=== PATIENT | female | born 1960 | race Caucasian/White ===

== ENCOUNTER → 2016-10-10 | Outpatient (CLI) | payer MEDICARE, OTHER ==
--- NOTE | 2016-10-11 07:49 | US ---
EXAMINATION TYPE: US thyroid st tissue head/neck DATE OF EXAM: 10/10/2016 3:32 PM COMPARISON: 07/23/2015 CLINICAL HISTORY: F/U GLAND SIZE: Right Lobe: 4.9 x 2.1 x 2.2 cm Overall Parenchyma: heterogenous Left Lobe: 4.2 x 1.2 x 1.3 cm Overall Parenchyma: homogeneous Isthmus Thickness: 0.2 cm NODULES RIGHT: # of nodules measured on right: 2 1. 3.2 X 1.7 x 2.3 cm isoechoic solid nodule at the mid pole with well-defined margins; This nodule is wider than tall and shows intranodular vascularity. Prior size: 3.5 x 2.0 x 2.1 cm 2. 0.6 X 0.4 x 0.4 cm isoechoic solid nodule at the upper pole with well-defined margins; This nodul e is wider than tall and shows intranodular vascularity. Prior size: Not visualized on prior LEFT: # of nodules measured on left: 2 1. 0.7 X 0.4 x 0.7 cm isoechoic solid nodule at the mid pole with poorly defined margins; This nodu le is wider than tall and shows intranodular vascularity. Prior size: 0.7 x 0.4 x 0.6 cm 2. 0.5 X 0.4 x 0.5 cm hypoechoic mixed nodule at the mid pole with well-defined margins; This nodul e is wider than tall and shows intranodular vascularity. Prior size: Not visualized on prior ISTHMUS: # of nodules measured: 0 IMPRESSION: Bilateral neck scanned, no abnormal lymphadenopathy noted. Stable previous nodules with a couple new subcentimeter nodules
== END | disposition home or self-care (01) ==
LOC: RADUSWWP 14:14
PROVIDERS: ATTEND Internal Medicine Endocrinology, Diabetes & Metabolism
DX: E04.2 Nontoxic multinodular goiter (principal)
CPT/HCPCS: 76536; 84439; 84443

== ENCOUNTER → 2017-11-30 | Outpatient (CLI) | payer MEDICARE, OTHER ==
--- NOTE | 2017-11-30 08:05 | CT ---
EXAMINATION TYPE: CT sinus wo con DATE OF EXAM: 11/30/2017 COMPARISON: Report dated 11/15/2002 HISTORY: Chronic sinusitis CT DLP: 624.2 mGycm CONTRAST: 0 mL of Omnipaque 350 The paranasal sinuses are examined in the axial plane at 2 mm thick sections. Reconstructed images i n the coronal plane were obtained. There is mild dental amalgam scatter artifact Mucosal thickening is within the left maxillary sinus. An air-fluid level may be present. Correlate f or acute left maxillary sinusitis. Right maxillary sinus is patent. Uncinectomies been performed. Th ere is mucosal thickening within a posterior right ethmoid air cell. The sphenoid sinuses are clear. The frontal sinuses are clear. The septum is evaluated. There is septal deviation to the right. Bilateral jung bullosa are presen t.. The ostiomeatal units are patent, , bilateral uncinectomies been performed. IMPRESSIONS: 1. Clinical consideration for acute left maxillary sinusitis is recommended. 2. Mild mucosal thickening left maxillary sinus in the posterior right ethmoid air cell.
== END ==
LOC: RADCTMAIN 06:47
PROVIDERS: ATTEND Otolaryngology
DX: J34.89 Other specified disorders of nose and nasal sinuses (principal)
CPT/HCPCS: 70486

== ENCOUNTER → 2019-02-28 | Outpatient (CLI) | payer MEDICARE, OTHER ==
--- NOTE | 2019-02-28 17:24 | US ---
EXAMINATION TYPE: US thyroid st tissue head/neck DATE OF EXAM: 02/28/2019 COMPARISON: 10/10/2016 CLINICAL HISTORY: E04.2 Nontoxic multinodular goiter. GLAND SIZE: Right Lobe: 4.4 x 1.8 x 1.9 cm Overall Parenchyma: homogenous Left Lobe: 4.1 x 1.4 x 1.3 cm Overall Parenchyma: homogeneous Isthmus Thickness: 0.2 cm NODULES RIGHT: # of nodules measured on right: 2 1. 0.4 X 0.3 x 0.4 cm isoechoic solid nodule at the upper pole with well-defined margins. This nod ule is wider than tall and shows intranodular vascularity. Prior size: 0.6 x 0.4 x 0.4 cm 2. 2.8 X 1.7 x 2.0 cm isoechoic mixed nodule at the mid pole with well-defined margins. This nodule is wider than tall and shows intranodular vascularity. Prior size: 3.2 x 1.7 x 2.3 cm LEFT: # of nodules measured on left: 1 1. 1.0 X 0.7 x 0.8 cm anechoic mixed nodule at the mid pole with well-defined margins. This nodule is wider than tall and shows intranodular vascularity. Prior size: 0.7 x 0.4 x 0.4 cm ISTHMUS: # of nodules measured in the isthmus: 0 Bilateral neck scanned, no evidence of lymphadenopathy. Multiple subcentimeter nodules seen bilateral ly. IMPRESSION: No interval growth of the dominant right thyroid nodule. Slight interval growth of a solitary left th yroid nodule measuring only 1 cm. Continued surveillance is recommended.
== END | disposition home or self-care (01) ==
LOC: RADUSWWP 15:36
PROVIDERS: ATTEND Internal Medicine Endocrinology, Diabetes & Metabolism
DX: E04.1 Nontoxic single thyroid nodule (principal)
CPT/HCPCS: 76536

== ENCOUNTER → 2019-04-17 | Outpatient (CLI) | payer MEDICARE, OTHER ==
[2019-04-17 10:37] LABS: Basophils % (A) 1 %; Eosinophils # (A) 0.1 k/uL (0-0.7); Eosinophils % (A) 4 %; HCT 38.2 % (34.0-46.0); Lymphocytes % (A) 32 %; MCH 29.3 pg (25.0-35.0); MCHC 31.4 g/dL (31.0-37.0); MCV 93.2 fL (80.0-100.0); Mean Platelet Volume 7.1; Monocytes # (A) 0.2 k/uL (0-1.0); Monocytes % (A) 6 %; Neutrophils # (A) 1.7 k/uL (1.3-7.7); Neutrophils % (A) 54 %; Platelet Count 204 k/uL (150-450); RDW 13.2 % (11.5-15.5); WBC 3.1 k/uL (3.8-10.6)
[2019-04-17 16:08] LABS: African American GFR (CKD) 51.6 (60.0-200.0); Albumin 4.2 g/dL (3.80-4.90); Albumin/Globulin Ratio 2.8 (1.60-3.17); Anion Gap 7.4 mmol/L (4.00-12.00); BUN/Creat Ratio 23.85 Ratio (12.00-20.00); Calcium 9.6 mg/dL (8.7-10.3); Carbon Dioxide 27.6 mmol/L (21.6-31.8); Globulin 1.5 g/dL (1.6-3.3); Potassium 4.4 mmol/L (3.5-5.5); Total Bilirubin 0.6 mg/dL (0.2-1.2); Total Protein 5.7 g/dL (6.2-8.2)
[2019-04-17 16:15] LABS: T4, Free (Free Thyroxine) 1.1 ng/dL (0.80-1.80)
== END | disposition home or self-care (01) ==
LOC: LABWHC1 09:52
PROVIDERS: ATTEND Internal Medicine Endocrinology, Diabetes & Metabolism
DX: E04.2 Nontoxic multinodular goiter (principal)
CPT/HCPCS: 36415; 80053; 84439; 84443; 85025

== ENCOUNTER → 2020-08-04 | Outpatient (CLI) | payer MEDICARE, OTHER ==
[2020-08-04 11:20] LABS: Basophils % (A) 0 %; Eosinophils # (A) 0.1 k/uL (0-0.7); Eosinophils % (A) 3 %; HCT 38.6 % (34.0-46.0); HGB 12.5 gm/dL (11.4-16.0); Lymphocytes # (A) 1.2 k/uL (1.0-4.8); Lymphocytes % (A) 37 %; MCH 30.5 pg (25.0-35.0); MCHC 32.4 g/dL (31.0-37.0); Mean Platelet Volume 7.1; Monocytes # (A) 0.3 k/uL (0-1.0); Monocytes % (A) 8 %; Neutrophils # (A) 1.6 k/uL (1.3-7.7); Neutrophils % (A) 50 %; Platelet Count 207 k/uL (150-450); RDW 12.8 % (11.5-15.5); WBC 3.2 k/uL (3.8-10.6)
[2020-08-04 11:57] LABS: Appearance,Urine Clear (Clear); Bilirubin,Urine Negative (Negative); Blood,Urine Negative (Negative); Color,Urine Colorless; Glucose,Urine (UA) Negative (Negative); Ketones,Urine Negative (Negative); Leukocyte Esterase,Urine Negative (Negative); Nitrite,Urine Negative (Negative); Protein,Urine Negative (Negative); Specific Gravity,Urine 1.004 (1.001-1.035); Urobilinogen,Urine <2.0 mg/dL (<2.0)
[2020-08-04 17:53] LABS: % Iron Saturation 29.15 (12.00-45.00); African American GFR (CKD) 46.9 (60.0-200.0); Albumin 4.2 g/dL (3.80-4.90); Anion Gap 6.9 mmol/L (4.00-12.00); BUN/Creat Ratio 15.71 Ratio (12.00-20.00); Calcium 10.1 mg/dL (8.7-10.3); Carbon Dioxide 28.1 mmol/L (21.6-31.8); Magnesium 1.7 mg/dL (1.5-2.4); Non-African American GFR(CKD) 40.5 (60.0-200.0); Phosphorus 2.8 mg/dL (2.4-5.1); Potassium 4.6 mmol/L (3.5-5.5); Uric Acid 9.1 mg/dL (2.9-7.7)
[2020-08-04 19:08] LABS: Ferritin 99.9 ng/mL (10.0-291.0)
[2020-08-04 21:51] LABS: Creatinine,Urine Random 36.2 mg/dL
[2020-08-04 22:16] LABS: Total Protein,Urine Random <4.0 mg/dL (0.0-13.5)
== END | disposition home or self-care (01) ==
LOC: LABWHC1 10:18
PROVIDERS: ATTEND Internal Medicine Nephrology
DX: E55.9 Vitamin D deficiency, unspecified (principal); N25.81 Secondary hyperparathyroidism of renal origin; N39.0 Urinary tract infection, site not specified; N18.32 Chronic kidney disease, stage 3b; M10.9 Gout, unspecified; D64.9 Anemia, unspecified; R80.9 Proteinuria, unspecified
CPT/HCPCS: 36415; 80048; 81003; 82040; 82306; 82570; 82728; 83540; 83550; 83735; 83970; 84100; 84156; 84550; 85025

== ENCOUNTER → 2020-11-19 | Outpatient (CLI) | payer MEDICARE, OTHER ==
[2020-11-19 09:13] LABS: Appearance,Urine Clear (Clear); Bilirubin,Urine Negative (Negative); Blood,Urine Negative (Negative); Color,Urine Light Yellow; Glucose,Urine (UA) Negative (Negative); Ketones,Urine Negative (Negative); Leukocyte Esterase,Urine Negative (Negative); Nitrite,Urine Negative (Negative); Protein,Urine Negative (Negative); Specific Gravity,Urine 1.008 (1.001-1.035); Urobilinogen,Urine <2.0 mg/dL (<2.0)
[2020-11-19 09:33] LABS: Creatinine,Urine Random 53.5 mg/dL; Protein/Creatinine Ratio,Urine 0.28
[2020-11-19 15:24] LABS: Basophils # (A) 0.02 X 10*3/uL (0.00-0.10); Basophils % (A) 0.5 %; Eosinophils # (A) 0 X 10*3/uL (0.04-0.35); Eosinophils % (A) 0 %; HCT 39.7 % (37.2-46.3); HGB 11.9 g/dL (12.0-15.0); Lymphocytes # (A) 0.94 X 10*3/uL (0.90-5.00); Lymphocytes % (A) 25.6 %; MCH 28.9 pg (27.0-32.0); MCV 96.4 fL (80.0-97.0); Mean Platelet Volume 10.6 fL (9.5-12.2); Monocytes % (A) 10.9 %; Neutrophils # (A) 2.31 X 10*3/uL (1.80-7.70); Platelet Count 200 X 10*3/uL (140-440); RBC 4.12 X 10*6/uL (4.10-5.20); RDW 13.2 % (11.5-14.5); WBC 3.67 X 10*3/uL (4.50-10.00)
[2020-11-19 18:08] LABS: Ferritin 103.8 ng/mL (10.0-291.0)
[2020-11-19 23:21] LABS: % Iron Saturation 31.16 (12.00-45.00); African American GFR (CKD) 42.8 (60.0-200.0); Albumin 4.2 g/dL (3.80-4.90); Anion Gap 6.3 mmol/L (4.00-12.00); BUN/Creat Ratio 16.67 Ratio (12.00-20.00); Calcium 10.9 mg/dL (8.7-10.3); Carbon Dioxide 29.7 mmol/L (21.6-31.8); Phosphorus 3.3 mg/dL (2.4-5.1); Potassium 4.8 mmol/L (3.5-5.5); Uric Acid 8.2 mg/dL (2.9-7.7)
== END | disposition home or self-care (01) ==
LOC: LABWHC1 08:17
PROVIDERS: ATTEND Nurse Practitioner Family
DX: N18.32 Chronic kidney disease, stage 3b (principal); E55.9 Vitamin D deficiency, unspecified; N25.81 Secondary hyperparathyroidism of renal origin; M10.9 Gout, unspecified; N39.0 Urinary tract infection, site not specified; D64.9 Anemia, unspecified
CPT/HCPCS: 36415; 80048; 81003; 82040; 82306; 82570; 82728; 83540; 83550; 83735; 83970; 84100; 84156; 84550; 85025

== ENCOUNTER → 2020-12-03 | Outpatient (CLI) | payer MEDICARE, OTHER ==
--- NOTE | 2020-12-03 16:25 | NM ---
EXAMINATION TYPE: NM parathyroid w/spect DATE OF EXAM: 12/03/2020 COMPARISON: NONE HISTORY: Secondary hyperparathyroidism TECHNIQUE: Following administration of 24.9 mCi Tc99m Sestamibi. Anterior projection images of the neck and ches t were obtained 25 minutes and 3 hours post injection. SPECT images of the neck and chest were obtai yovana and reconstructed in three axes. FINDINGS: Thyroid tracer washout: Delayed images demonstrate near-complete tracer washout from the thyroid., Th ere is some delayed thyroid uptake noted. Parathyroid uptake: None. The two-hour delayed images do not demonstrate any focal abnormal persisten t uptake in the region of the parathyroid glands to suggest parathyroid adenoma. Normal uptake: There is physiological tracer uptake in the thyroid and salivary glands. IMPRESSION: Delayed uptake is noted in the thyroid, no evident parathyroid adenoma
== END ==
LOC: RADNMMAIN 11:19
PROVIDERS: ATTEND Internal Medicine Nephrology
DX: N25.81 Secondary hyperparathyroidism of renal origin (principal)
CPT/HCPCS: 78071; A9500

== ENCOUNTER → 2020-12-28 | Outpatient (CLI) | payer MEDICARE, OTHER ==
[2020-12-28 23:36] LABS: African American GFR (CKD) 42.8 (60.0-200.0); Anion Gap 8.1 mmol/L (4.00-12.00); BUN/Creat Ratio 15.33 Ratio (12.00-20.00); Calcium 10.3 mg/dL (8.7-10.3); Carbon Dioxide 27.9 mmol/L (21.6-31.8); Potassium 5.1 mmol/L (3.5-5.5)
== END | disposition home or self-care (01) ==
LOC: LABWHC1 10:35
PROVIDERS: ATTEND Internal Medicine Nephrology
DX: E83.52 Hypercalcemia (principal); N18.32 Chronic kidney disease, stage 3b
CPT/HCPCS: 36415; 80048; 83970

== ENCOUNTER → 2021-01-07 | Outpatient (CLI) | payer MEDICARE, OTHER ==
[2021-01-08 09:14] LABS: Free Kappa Lt Chain Qnt, Serum 2.86 mg/dL (0.33-1.94)
== END | disposition home or self-care (01) ==
LOC: LABWHC1 10:05
PROVIDERS: ATTEND Nurse Practitioner Family
DX: E83.52 Hypercalcemia (principal)
CPT/HCPCS: 36415; 82306; 83883

== ENCOUNTER → 2021-01-22 | Outpatient (CLI) | payer MEDICARE, OTHER | END | disposition home or self-care (01) | LOC: LABWHC1 11:37 | PROVIDERS: ATTEND Family Medicine | DX: Z20.822 Contact with and (suspected) exposure to COVID-19 (principal) | CPT/HCPCS: U0003; C9803; U0005 ==

== ENCOUNTER → 2021-04-07 | Outpatient (CLI) | payer MEDICARE, OTHER ==
[2021-04-07 09:09] LABS: Appearance,Urine Clear (Clear); Bilirubin,Urine Negative (Negative); Blood,Urine Negative (Negative); Color,Urine Light Yellow; Glucose,Urine (UA) Negative (Negative); Ketones,Urine Negative (Negative); Leukocyte Esterase,Urine Trace (Negative); Mucus,Urine Rare /hpf; Nitrite,Urine Negative (Negative); PH, Urine 7.5 (5.0-8.0); Protein,Urine Negative (Negative); Specific Gravity,Urine 1.006 (1.001-1.035); Urobilinogen,Urine <2.0 mg/dL (<2.0); WBC,Urine 3 /hpf (0-5)
[2021-04-07 09:52] LABS: Creatinine,Urine Random 41.6 mg/dL; Protein/Creatinine Ratio,Urine 0.337
[2021-04-07 15:55] LABS: Basophils # (A) 0.02 X 10*3/uL (0.00-0.10); Basophils % (A) 0.6 %; Eosinophils # (A) 0 X 10*3/uL (0.04-0.35); Eosinophils % (A) 0 %; HCT 37.3 % (37.2-46.3); HGB 11.8 g/dL (12.0-15.0); Lymphocytes # (A) 1.05 X 10*3/uL (0.90-5.00); Lymphocytes % (A) 33.1 %; MCH 29.9 pg (27.0-32.0); MCHC 31.6 g/dL (32.0-37.0); MCV 94.7 fL (80.0-97.0); Mean Platelet Volume 10.8 fL (9.5-12.2); Monocytes # (A) 0.36 X 10*3/uL (0.20-1.00); Monocytes % (A) 11.4 %; Neutrophils # (A) 1.74 X 10*3/uL (1.80-7.70); Neutrophils % (A) 54.9 %; Platelet Count 204 X 10*3/uL (140-440); RBC 3.94 X 10*6/uL (4.10-5.20); RDW 12.8 % (11.5-14.5); WBC 3.17 X 10*3/uL (4.50-10.00)
[2021-04-07 23:44] LABS: % Iron Saturation 21.28 (12.00-45.00); African American GFR (CKD) 42.8 (60.0-200.0); Albumin 4.3 g/dL (3.80-4.90); Anion Gap 7.3 mmol/L (4.00-12.00); BUN/Creat Ratio 16.67 Ratio (12.00-20.00); Calcium 9.6 mg/dL (8.7-10.3); Carbon Dioxide 27.7 mmol/L (21.6-31.8); Magnesium 1.9 mg/dL (1.5-2.4); Phosphorus 3.1 mg/dL (2.4-5.1); Uric Acid 7.5 mg/dL (2.9-7.7)
[2021-04-07 23:54] LABS: Ferritin 123.9 ng/mL (10.0-291.0)
[2021-04-08 13:47] LABS: Free Kappa Lt Chain Qnt, Serum 2.97 mg/dL (0.33-1.94)
== END | disposition home or self-care (01) ==
LOC: LABWHC1 07:42
PROVIDERS: ATTEND Nurse Practitioner Family
DX: N39.0 Urinary tract infection, site not specified (principal); N18.32 Chronic kidney disease, stage 3b; N25.81 Secondary hyperparathyroidism of renal origin; E55.9 Vitamin D deficiency, unspecified; D64.9 Anemia, unspecified; M10.9 Gout, unspecified; R80.9 Proteinuria, unspecified
CPT/HCPCS: 36415; 80048; 81001; 82040; 82306; 82570; 82652; 82728; 83540; 83550; 83735; 83883; 83970; 84100; 84156; 84166; 84550; 85025

== ENCOUNTER → 2021-06-15 | Outpatient (CLI) | payer MEDICARE, OTHER | END | disposition home or self-care (01) | LOC: LABWHC1 15:40 | PROVIDERS: ATTEND Family Medicine | DX: Z11.52 Encounter for screening for COVID-19 (principal) | CPT/HCPCS: U0003; C9803; U0005 ==

== ENCOUNTER → 2021-09-10 | Outpatient (CLI) | payer MEDICARE, OTHER ==
[2021-09-10 09:13] LABS: Appearance,Urine Clear (Clear); Bilirubin,Urine Negative (Negative); Blood,Urine Negative (Negative); Color,Urine Light Yellow; Glucose,Urine (UA) Negative (Negative); Ketones,Urine Negative (Negative); Leukocyte Esterase,Urine Negative (Negative); Nitrite,Urine Negative (Negative); PH, Urine 7.5 (5.0-8.0); Protein,Urine Negative (Negative); Specific Gravity,Urine 1.009 (1.001-1.035); Urobilinogen,Urine <2.0 mg/dL (<2.0)
[2021-09-10 10:10] LABS: Creatinine,Urine Random 55.3 mg/dL; Protein/Creatinine Ratio,Urine 0.271
[2021-09-10 15:05] LABS: Basophils # (A) 0.03 X 10*3/uL (0.00-0.10); Basophils % (A) 0.9 %; Eosinophils # (A) 0 X 10*3/uL (0.04-0.35); Eosinophils % (A) 0 %; HCT 39.8 % (37.2-46.3); HGB 12.2 g/dL (12.0-15.0); Lymphocytes # (A) 1.06 X 10*3/uL (0.90-5.00); Lymphocytes % (A) 30.5 %; MCH 29.4 pg (27.0-32.0); MCHC 30.7 g/dL (32.0-37.0); MCV 95.9 fL (80.0-97.0); Mean Platelet Volume 10.1 fL (9.5-12.2); Monocytes # (A) 0.43 X 10*3/uL (0.20-1.00); Monocytes % (A) 12.4 %; Neutrophils # (A) 1.95 X 10*3/uL (1.80-7.70); Neutrophils % (A) 55.9 %; Platelet Count 214 X 10*3/uL (140-440); RBC 4.15 X 10*6/uL (4.10-5.20); RDW 13.2 % (11.5-14.5); WBC 3.48 X 10*3/uL (4.50-10.00)
[2021-09-10 17:22] LABS: % Iron Saturation 18.52 (12.00-45.00); African American GFR (CKD) 39.9 (60.0-200.0); Albumin 4.5 g/dL (3.8-4.9); Anion Gap 10.8 mmol/L (10.00-18.00); BUN/Creat Ratio 16.6 Ratio (12.00-20.00); Blood Urea Nitrogen 26.4 mg/dL (9.0-27.0); Calcium 10.7 mg/dL (8.7-10.3); Carbon Dioxide 26.8 mmol/L (20.0-27.5); Magnesium 2.2 mg/dL (1.5-2.4); Non-African American GFR(CKD) 34.4 (60.0-200.0); Phosphorus 3.3 mg/dL (2.4-5.1); Potassium 5.3 mmol/L (3.5-5.5); Uric Acid 8.1 mg/dL (2.9-7.7)
== END | disposition home or self-care (01) ==
LOC: LABWHC1 07:58
PROVIDERS: ATTEND Internal Medicine Nephrology
DX: N25.81 Secondary hyperparathyroidism of renal origin (principal); E61.1 Iron deficiency; N18.32 Chronic kidney disease, stage 3b; R80.9 Proteinuria, unspecified
CPT/HCPCS: 36415; 80048; 81003; 82040; 82570; 83540; 83550; 83735; 83970; 84100; 84156; 84550; 85025

== ENCOUNTER 2021-11-13 20:10 | Emergency (ER) | payer MEDICARE, OTHER ==
[2021-11-13] MEDS ORDERED: ACETAMINOPHEN TAB 325 MG TAB PO STA (21:17)
--- NOTE | 2021-11-13 21:48 | CT ---
EXAMINATION TYPE: CT brain cspine wo con DATE OF EXAM: 11/13/2021 COMPARISON: None HISTORY: fall CT DLP: combined DLP 1031.8 mGycm Automated exposure control for dose reduction was used. Ventricles and sulci appear normal. There is no mass effect or midline shift. There is no sign of int racranial hemorrhage. There is left occipital scalp hematoma. Calvarium is intact. The skull base is intact. There is normal aeration of the mastoid sinuses. The cervical vertebra have normal alignment. Posterior elements are intact. There is mild disc space narrowing at C5-6 and C6-7 with minimal spurring. Facet joints are intact. IMPRESSION: Minor degenerative changes in the cervical spine. No fracture. Negative CT scan of the brain. Occipital scalp hematoma.
--- NOTE | 2021-11-13 21:55 | CT ---
EXAMINATION TYPE: CT facial bones wo con DATE OF EXAM: 11/13/2021 COMPARISON: None HISTORY: fall CT DLP: combined DLP 1031.8 mGycm Automated exposure control for dose reduction was used. Images obtained from the bottom of the mandible to the top of the frontal sinuses without contrast. The mandibular ring is intact. Temporomandibular joints appear intact. Zygomatic arches appear normal . Nasal bone appears intact. The maxilla is intact There is fairly normal aeration of the paranasal sinuses. There is no evidence of orbital blowout fra cture. Orbital margins are intact. There is no retro-orbital mass. I see no significant soft tissue s welling. IMPRESSION: Negative exam. No evidence of fracture.
--- NOTE | 2021-11-13 22:00 | XR ---
EXAMINATION TYPE: XR wrist complete RT DATE OF EXAM: 11/13/2021 COMPARISON: NONE HISTORY: Pain TECHNIQUE: 4 views FINDINGS: Carpal bones are intact. There is short ulna. Radiocarpal joint is anatomic. Metacarpals ar e intact. Scaphoid is intact. IMPRESSION: No acute abnormality of the right wrist.
--- NOTE | 2021-11-13 22:01 | XR ---
EXAMINATION TYPE: XR elbow complete RT DATE OF EXAM: 11/13/2021 COMPARISON: NONE HISTORY: Pain TECHNIQUE: 3 views FINDINGS: There is no evidence of fracture nor dislocation. Elbow joint spaces are normal. There is n o sign of elbow joint effusion. IMPRESSION: Negative right elbow exam. No fracture.
--- NOTE | 2021-11-13 22:50 | ED ---
General Adult HPI - General Chief complaint: Fall Stated complaint: Fall-head injury,R wrist pain Time Seen by Provider: 11/13/21 20:25 Source: patient, RN notes reviewed Mode of arrival: wheelchair - History of Present Illness Initial comments: 61-year-old female presents to the emergency department for evaluation of injuries sustained from a slip and fall on ice approximately 50 minutes prior to arrival. Patient states she lost her balance on a slippery spot and fell on her buttocks, then struck the back of her head on the ice. Additionally, patient complains of left-sided facial discomfort that worsens with jaw movement. States she also had her right arm extended out when she fell and is worried about injury to her elbow and wrist. Patient denies loss of consciousness, vision change, neck or back pain, chest pain, difficulty breathing, abdominal pain, nausea, hip pain, and lower extremity discomfort. Does not take any blood thinning medications. - Related Data Home Medications Medication Instructions Recorded Confirmed Fluticasone Nasal Elizabeth [Flonase 2 spr EA NOSTRIL DAILY 12/26/17 01/03/18 Nasal Elizabeth] Montelukast [Singulair] 10 mg PO DAILY 12/26/17 01/03/18 Vit C/E/Zn/Coppr/Lutein/Zeaxan 1 tab PO BID 12/26/17 01/03/18 [Preservision Areds 2 Softgel] Allergies Allergy/AdvReac Type Severity Reaction Status Date / Time adhesive tape Allergy Itching Verified 11/13/21 20:15 amoxicillin [From Augmentin] Allergy Rash/Hives Verified 11/13/21 20:15 barley Allergy Unknown Verified 11/13/21 20:15 cefprozil [From Cefzil] Allergy Rash/Hives Verified 11/13/21 20:15 clarithromycin [From Biaxin] Allergy Rash/Hives Verified 11/13/21 20:15 clavulanic acid Allergy Rash/Hives Verified 11/13/21 20:15 [From Augmentin] clindamycin Allergy Rash/Hives Verified 11/13/21 20:15 codeine Allergy Nausea & Verified 11/13/21 20:15 Vomiting latex Allergy Swelling Verified 11/13/21 20:15 MOUTH, TONGUE milk Allergy Unknown Verified 11/13/21 20:15 mold Allergy Dyspnea Verified 11/13/21 20:15 morphine Allergy Hallucinations Verified 11/13/21 20:15 IN LARGE DOSES Sulfa (Sulfonamide Allergy Rash/Hives Verified 11/13/21 20:15 Antibiotics) wheat Allergy Unknown Verified 11/13/21 20:15 duratuss Allergy Unknown Uncoded 11/13/21 20:15 rye Allergy Unknown Uncoded 11/13/21 20:15 Review of Systems ROS Statement: Those systems with pertinent positive or pertinent negative responses have been documented in the HPI. ROS Other: All systems not noted in ROS Statement are negative. Past Medical History Past Medical History: Asthma, Cancer, Eye Disorder, Thyroid Disorder Additional Past Medical History / Comment(s): SEASONAL ALLERGY/ASTHMA CHILD. 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 MACULAR DEGENERATION, NEUROPATHY EYES. THYROID NODULES. NASAL FX, SINUS PROBLEM CURRENTLY. liver cyst. History of Any Multi-Drug Resistant Organisms: None Reported Past Surgical History: Hysterectomy, Orthopedic Surgery Additional Past Surgical History / Comment(s): REPAIR AAA. Kidney SURG X9. SINUS SURG. EXC CYSTS WRISTS. Past Anesthesia/Blood Transfusion Reactions: Previous Problems w/ Anesthesia, Motion Sickness, Postoperative Nausea & Vomiting (PONV) Additional Past Anesthesia/Blood Transfusion Reaction / Comment(s): SLOW TO AWAKEN FROM ANESTHESIA. Past Psychological History: No Psychological Hx Reported Smoking Status: Never smoker Past Alcohol Use History: None Reported Past Drug Use History: None Reported - Past Family History Mother Family Medical History: Cancer Father Family Medical History: Cancer, CVA/TIA, Myocardial Infarction ([place]) General Exam Limitations: no limitations (Well-developed, well-nourished female in no acute distress. Initial temperature 98.0, pulse 71, respirations 20, blood pressure 190/90 and pulse ox 98% on room air) General appearance: alert, in no apparent distress Head exam: Present: other (Occipital scalp hematoma measuring 4 cm x 7 cm noted. Skin intact with no abrasion or laceration.) Eye exam: Present: normal appearance, PERRL, EOMI. Absent: scleral icterus, conjunctival injection, periorbital swelling Pupils: Present: other (Patient was wearing glasses at time of injury and they are intact. ) ENT exam: Present: normal exam, normal oropharynx, mucous membranes moist, TM's normal bilaterally, other (Tenderness upon palpation of the left TMJ; no crepitus or malalignment) Expanded Ear exam: Present: normal external inspection. Absent: auricular hematoma, auricular trauma Mouth exam: Present: normal external inspection Teeth exam: Present: normal inspection Throat exam: normal inspection Neck exam: Present: normal inspection, full ROM. Absent: tenderness Respiratory exam: Present: normal lung sounds bilaterally. Absent: respiratory distress, wheezes, rales, rhonchi, stridor, chest wall tenderness Cardiovascular Exam: Present: regular rate, normal rhythm, normal heart sounds. Absent: systolic murmur, diastolic murmur, rubs, gallop, clicks GI/Abdominal exam: Present: soft, normal bowel sounds. Absent: distended, tenderness, guarding, rebound, rigid Extremities exam: Present: normal capillary refill. Absent: pedal edema Right Upper Arm exam: Present: normal inspection, full ROM. Absent: tenderness, swelling Elbow exam: Present: normal inspection, full ROM, tenderness (Tenderness upon palpation of the elbow diffusely- nonlocalized; ROM intact). Absent: swelling, abrasion, deformity, crepitus, dislocation Forearm Wrist exam: Present: normal inspection, tenderness (mild diffuse wrist tenderness upon palpation; nonlocalized), swelling (mild swelling dorsal surface). Absent: full ROM (somewhat decreased right wrist flexion), abrasion, laceration, ecchymosis, deformity, crepitus, dislocation, erythema, tenderness over anatomical snuff box, pain with axial thumb loading Hand Wrist exam: Present: normal inspection, full ROM. Absent: tenderness, swelling, abrasion Neuro motor exam: Present: thumb opposition intact, fingers 2-5 abduction intact Vascular: Present: normal capillary refill, radial pulse, brachial pulse, ulnar pulse. Absent: vascular compromise, Pallo Back exam: Present: normal inspection, full ROM. Absent: tenderness, paraspinal tenderness, vertebral tenderness Neurological exam: Present: alert, oriented X3, CN II-XII intact, other (smooth gait, ambulates freely) Psychiatric exam: Present: normal affect, normal mood Skin exam: Present: warm, dry, intact, normal color. Absent: rash Course Vital Signs 11/13/21 11/14/21 20:12 00:06 Temperature 98 F 98.1 F Pulse Rate 71 72 Respiratory 20 16 Rate Blood Pressure 190/99 126/82 O2 Sat by Pulse 99 98 Oximetry Medical Decision Making - Medical Decision Making This is a very pleasant 61-year-old female who presents to the emergency department independently status post slip and fall on the ice approximately 50 minutes prior to arrival. Patient has a history of renal carcinoma therefore only takes Tylenol for pain. Upon exam, patient is well-appearing and in no acute distress. She is able to answer questions appropriately and moves freely. Does have a moderate-sized occipital scalp hematoma; no area of abrasion or laceration visualized. She does not take any blood thinning medications. Patient did not experience any loss of consciousness or vision change. Additional complaints include left sided TMJ tenderness upon palpation and with mastication, though no malalignment or crepitus noted. There is no vertebral or paraspinal tenderness. She also has right wrist and elbow pain with no obvious deformity. Imaging was obtained. CTs of the head, C-spine, and facial bones were negative. X-rays of the right wrist and elbow were negative. Trevon wrap was applied to the right wrist for comfort. Suggested alternating heat and ice. Encouraged to use Tylenol as needed for pain. Mobility and gentle range of motion exercises were discussed. Instructed to follow up with PCP for recheck. Return parameters were discussed in detail. Patient verbalizes understanding and agrees with plan. This patient's care was discussed with my attending . - Radiology Data Radiology results: report reviewed, image reviewed CT of the brain and C-spine was obtained. Report was reviewed in its entirety. Impression per Dr. Watters is minor degenerative changes in the cervical spine. No fracture. Negative computed tomography scan of the brain. Occipital scalp hematoma. CT of the facial bones was obtained. Report was reviewed in its entirety. Impression per Dr. Watters is negative exam. No evidence of fracture. X-ray of the right wrist was obtained. Report was reviewed in its entirety. Impression per Dr. Watters is no acute abnormality of the right wrist. X-ray of the right elbow was obtained. Report was reviewed in its entirety. Impression per Dr. Watters is negative right elbow exam. No fracture. Disposition Clinical Impression: Hematoma of occipital region of scalp, Sprain of wrist, right, Fall from slipping on ice Disposition: HOME SELF-CARE Condition: Stable Instructions (If sedation given, give patient instructions): Wrist Injury (ED), Head Injury (ED), Fall Prevention (ED) Additional Instructions: Take Tylenol for pain. Alternate heat and ice to affected areas. Trevon wrap to right wrist x3 days. Maintain mobility with gentle range of motion exercises. Follow up with your orthopedist for a recheck of the right wrist this week. Return to the emergency department with any new, worsening, or concerning symptoms. Is patient prescribed a controlled substance at d/c from ED?: No Referrals: Sterling House MD [Primary Care Provider] - 1-2 days Time of Disposition: 23:53
[2021-11-14 00:08] VITALS: PULSE 72; RESP 16; TEMP 98.1
[2021-11-14 00:11] VITALS: BP 126/82
== END 2021-11-14 00:06 | disposition home or self-care (01) ==
LOC: EC 20:10
DX: S63.501A Unspecified sprain of right wrist, initial encounter (principal); S00.03XA Contusion of scalp, initial encounter; J45.909 Unspecified asthma, uncomplicated; Z79.899 Other long term (current) drug therapy; W00.0XXA Fall on same level due to ice and snow, initial encounter
CPT/HCPCS: 70450; 70486; 72125; 99284

== ENCOUNTER → 2021-11-18 | Outpatient (CLI) | payer MEDICARE ==
[2021-11-18 19:20] LABS: African American GFR (CKD) 39.3 (60.0-200.0); Albumin 4.5 g/dL (3.8-4.9); Albumin/Globulin Ratio 2.19 (1.60-3.17); Anion Gap 10.1 mmol/L (10.00-18.00); BUN/Creat Ratio 16.06 Ratio (12.00-20.00); Blood Urea Nitrogen 25.7 mg/dL (9.0-27.0); Calcium 10.7 mg/dL (8.7-10.3); Carbon Dioxide 26.3 mmol/L (20.0-27.5); Globulin 2.1 g/dL (1.6-3.3); Non-African American GFR(CKD) 33.9 (60.0-200.0); Potassium 5.2 mmol/L (3.5-5.5); T4, Free (Free Thyroxine) 1.17 ng/dL (0.800-1.800); Total Bilirubin 0.4 mg/dL (0.30-1.20); Total Protein 6.5 g/dL (6.2-8.2)
== END | disposition home or self-care (01) ==
LOC: LABWHC1 11:58
PROVIDERS: ATTEND Internal Medicine Endocrinology, Diabetes & Metabolism
DX: E21.0 Primary hyperparathyroidism (principal); E04.2 Nontoxic multinodular goiter
CPT/HCPCS: 36415; 80053; 82306; 83970; 84439; 84443

== ENCOUNTER → 2021-12-02 | Outpatient (CLI) | payer MEDICARE ==
--- NOTE | 2021-12-03 07:45 | US ---
EXAMINATION TYPE: US thyroid st tissue head/neck DATE OF EXAM: 12/02/2021 COMPARISON: US CLINICAL HISTORY: E21.0 HYPERPARATHYROIDISM. Stage 4 Renal CA. GLAND SIZE: Right Lobe: 5.2 x 2.2 x 2.3 cm Overall Parenchyma: homogenous Left Lobe: 4.1 x 1.3 x 1.0 cm Overall Parenchyma: homogeneous Isthmus Thickness: 0.2 cm NODULES RIGHT: # of nodules measured on right: 2 largest of multiple 1. 0.5 X 0.5 x 0.3 cm, upper pole, spongiform, hypoechoic nodule, which is wider than tall, with ir regular margins, without echogenic foci. Prior size: 0.4 x 0.4 x 0.4 cm 2. 3.2 X 2.3 x 2.0 cm, mid pole, mixed cystic, hypoechoic nodule, which is wider than tall, with lo bulated or irregular margins, without echogenic foci. Prior size: 2.0 x 2.8 x 1.6 cm LEFT: # of nodules measured on left: 2 largest of multiple 1. 0.8 X 0.7 x 0.5 cm, mid pole, mixed cystic and solid, hypoechoic nodule, which is wider than rody l, with irregular margins, with echogenic foci. Prior size: 1.0 x 0.8 x 0.6 cm 2. 0.4 X 0.4 x 0.3 cm, mid medial, cystic, very hypoechoic nodule, which is wider than tall, with irregular margins, without echogenic foci. Prior size: not seen ISTHMUS: # of nodules measured in the isthmus: 0 Bilateral neck scanned at Parathyroid level: Inferior and lateral to right thyroid a hypoechoic oval nodule is noted = 0.3 x 0.4 x 0.5cm; inferior and lateral to left thyroid anechoic oval nodule is als o seen = 0.5 x 0.4 x 0.3cm. IMPRESSION: 1. No nonspecific thyroid nodularity 2. Extrathyroid nodules as discussed may reflect parathyroid adenomas. Correlate clinically.
== END | disposition home or self-care (01) ==
LOC: RADUSWWP 15:05
PROVIDERS: ATTEND Internal Medicine Endocrinology, Diabetes & Metabolism
DX: E04.2 Nontoxic multinodular goiter (principal); C64.9 Malignant neoplasm of unspecified kidney, except renal pelvis
CPT/HCPCS: 76536

== ENCOUNTER 2022-01-18 16:49 | Emergency (ER) | payer MEDICARE ==
[2022-01-19 02:08] LABS: Basophils % (A) 1 %; Eosinophils # (A) 0.2 k/uL (0-0.7); Eosinophils % (A) 3 %; HCT 39.4 % (34.0-46.0); HGB 12.8 gm/dL (11.4-16.0); Lymphocytes # (A) 1.1 k/uL (1.0-4.8); Lymphocytes % (A) 18 %; MCHC 32.5 g/dL (31.0-37.0); MCV 92.2 fL (80.0-100.0); Mean Platelet Volume 7.5; Monocytes # (A) 0.6 k/uL (0-1.0); Monocytes % (A) 10 %; Neutrophils % (A) 66 %; Platelet Count 214 k/uL (150-450); RBC 4.27 m/uL (3.80-5.40); RDW 12.5 % (11.5-15.5); WBC 6.1 k/uL (3.8-10.6)
--- NOTE | 2022-01-19 02:17 | ED ---
General Adult HPI - General Source: patient, RN notes reviewed Mode of arrival: ambulatory Limitations: no limitations <Yady Mcnamara - Last Filed: 01/19/22 03:48> <Kelsi Shaw - Last Filed: 01/19/22 05:32> - General Chief complaint: Neuro Symptoms/Deficit Stated complaint: Numbness and tingling in mouth and extremities Time Seen by Provider: 01/19/22 00:22 - History of Present Illness Initial comments: 61-year-old female with recent right-sided thyroidectomy and significant parathyroidectomy at [facility] presents to the emergency department for evaluation of muscle twitching and spasms, numbness and tingling to the mouth and face, and restlessness. Patient states she has been taking her calcium sanchez pplement as directed but was instructed to have further laboratory studies done due to these symptoms which have persisted for the past 3 days. Denies fever, chills, headache, dizziness, chest pain, shortness of breath, abdominal pain, nausea, vomiting, diarrhea, or dysuria. (Yady Mcnamara) - Related Data Home Medications Medication Instructions Recorded Confirmed Fluticasone Nasal [place] [Flonase 2 spr EA NOSTRIL DAILY 12/26/17 01/03/18 Nasal [place]] Montelukast [Singulair] 10 mg PO DAILY 12/26/17 01/03/18 Vit C/E/Zn/Coppr/Lutein/Zeaxan 1 tab PO BID 12/26/17 01/03/18 [Preservision Areds 2 Softgel] Allergies Allergy/AdvReac Type Severity Reaction Status Date / Time adhesive tape Allergy Itching Verified 01/18/22 17:22 amoxicillin [From Augmentin] Allergy Rash/Hives Verified 01/18/22 17:22 barley Allergy Unknown Verified 01/18/22 17:22 cefprozil [From Cefzil] Allergy Rash/Hives Verified 01/18/22 17:22 clarithromycin [From Biaxin] Allergy Rash/Hives Verified 01/18/22 17:22 clavulanic acid Allergy Rash/Hives Verified 01/18/22 17:22 [From Augmentin] clindamycin Allergy Rash/Hives Verified 01/18/22 17:22 codeine Allergy Nausea & Verified 01/18/22 17:22 Vomiting latex Allergy Swelling Verified 01/18/22 17:22 MOUTH, TONGUE milk Allergy Unknown Verified 01/18/22 17:22 mold Allergy Dyspnea Verified 01/18/22 17:22 morphine Allergy Hallucinations Verified 01/18/22 17:22 IN LARGE DOSES Sulfa (Sulfonamide Allergy Rash/Hives Verified 01/18/22 17:22 Antibiotics) wheat Allergy Unknown Verified 01/18/22 17:22 duratuss Allergy Unknown Uncoded 01/18/22 17:22 rye Allergy Unknown Uncoded 01/18/22 17:22 Review of Systems ROS Other: All systems not noted in ROS Statement are negative. <Yady Mcnamara - Last Filed: 01/19/22 03:48> ROS Other: All systems not noted in ROS Statement are negative. <Kelsi Shaw - Last Filed: 01/19/22 05:32> ROS Statement: Those systems with pertinent positive or pertinent negative responses have been documented in the HPI. Past Medical History Past Medical History: Asthma, Cancer, Eye Disorder, Thyroid Disorder Additional Past Medical History / Comment(s): SEASONAL ALLERGY/ASTHMA CHILD. 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 MACUL AR DEGENERATION, NEUROPATHY EYES. THYROID NODULES. NASAL FX, SINUS PROBLEM CURRENTLY. liver cyst. History of Any Multi-Drug Resistant Organisms: None Reported Past Surgical History: Hysterectomy, Orthopedic Surgery Additional Past Surgical History / Comment(s): REPAIR AAA. Kidney SURG X9. SINUS SURG. EXC CYSTS WRISTS. thyroid sx Past Anesthesia/Blood Transfusion Reactions: Previous Problems w/ Anesthesia, Motion Sickness, Postoperative Nausea & Vomiting (PONV) Additional Past Anesthesia/Blood Transfusion Reaction / Comment(s): SLOW TO AWAKEN FROM ANESTHESIA. Past Psychological History: No Psychological Hx Reported Smoking Status: Never smoker Past Alcohol Use History: None Reported Past Drug Use History: None Reported - Past Family History Mother Family Medical History: Cancer Father Family Medical History: Cancer, CVA/TIA, Myocardial Infarction ([place]) <Yady Mcanmara - Last Filed: 01/19/22 03:48> General Exam Limitations: no limitations (Well-developed, well-nourished female in no acute distress. Initial temperature 98.7, pulse 86, respirations 18, blood pressure 168/76, pulse ox 98% on room air.) General appearance: alert, in no apparent distress Head exam: Present: atraumatic, normocephalic, normal inspection Eye exam: Present: normal appearance, PERRL, EOMI. Absent: scleral icterus, conjunctival injection ENT exam: Present: normal exam, normal oropharynx, mucous membranes moist Neck exam: Present: other (Surgical incision appears intact and to be well- healing). Absent: meningismus, lymphadenopathy Respiratory exam: Present: normal lung sounds bilaterally. Absent: respiratory distress, wheezes, rales, rhonchi, stridor Cardiovascular Exam: Present: regular rate, normal rhythm, normal heart sounds. Absent: systolic murmur, diastolic murmur, rubs, gallop, clicks GI/Abdominal exam: Present: soft, normal bowel sounds. Absent: distended, tenderness, guarding, rebound, rigid Extremities exam: Present: normal inspection, normal capillary refill. Absent: pedal edema Back exam: Present: normal inspection, full ROM. Absent: tenderness, muscle spasm, paraspinal tenderness, vertebral tenderness Neurological exam: Present: alert, oriented X3 Psychiatric exam: Present: anxious Skin exam: Present: warm, dry, intact, normal color <Yady Mcnamara - Last Filed: 01/19/22 03:48> Course <Yady Mcnamara - Last Filed: 01/19/22 03:48> Vital Signs 01/18/22 01/19/22 01/19/22 17:11 02:00 04:00 Temperature 98.7 F 97.8 F Pulse Rate 86 76 68 Respiratory 18 20 18 Rate Blood Pressure 168/76 139/105 139/83 O2 Sat by Pulse 98 99 98 Oximetry - Reevaluation(s) Reevaluation #1: 01/19/22 02:50 Patient updated on plan of care including possible admission for correction of hypocalcemia. Patient is agreeable. Dr. Shaw will assume care of this patient. (Yady Mcnamara) Medical Decision Making - Lab Data Result diagrams: 01/19/22 01:55 01/19/22 01:55 <Yady Mcnamara - Last Filed: 01/19/22 03:48> - Lab Data Result diagrams: 01/19/22 01:55 01/19/22 01:55 <Kelsi Shaw - Last Filed: 01/19/22 05:32> - Medical Decision Making This is a pleasant 61-year-old female who presents to the emergency department for evaluation of symptoms attributed to hypocalcemia. Upon exam, patient is somewhat anxious, though is resting comfortably. She recently had parathyroid and thyroid surgery at [facility] and has been taking calcium supplements as directed. States over the past 3 days she has had increased numbness to her tongue, tingling of her face, and frequent muscle spasms in her back. Lab oratory studies were reviewed. Calcium 6.9, phosphorus 5.7, magnesium 1.4. This patient's care was discussed with my attending, Dr. Shaw, who will assume care for this patient and disposition her. (Yady Mcnamara) Patient care was signed out to me, patient care was discussed with hospitalist here however they feel patient should be evaluated at the facility where her s urgery was done and likely somewhere that has endocrinology available. Patient was agreeable to transfer. Patient care was discussed with at [facility] who accepts patient ER to ER transfer (Kelsi Shaw) - Lab Data Lab Results 01/19/22 01/19/22 01/19/22 Range/Units 01:55 01:55 01:55 WBC 6.1 (3.8-10.6) k/uL RBC 4.27 (3.80-5.40) m/uL Hgb 12.8 (11.4-16.0) gm/dL Hct 39.4 (34.0-46.0) % MCV 92.2 (80.0-100.0) fL MCH 30.0 (25.0-35.0) pg MCHC 32.5 (31.0-37.0) g/dL RDW 12.5 (11.5-15.5) % Plt Count 214 (150-450) k/uL MPV 7.5 Neutrophils % 66 % Lymphocytes % 18 % Monocytes % 10 % Eosinophils % 3 % Basophils % 1 % Neutrophils # 4.0 (1.3-7.7) k/uL Lymphocytes # 1.1 (1.0-4.8) k/uL Monocytes # 0.6 (0-1.0) k/uL Eosinophils # 0.2 (0-0.7) k/uL Basophils # 0.0 (0-0.2) k/uL Sodium 136 L (137-145) mmol/L Potassium 4.4 (3.5-5.1) mmol/L Chloride 99 (98-107) mmol/L Carbon Dioxide 30 (22-30) mmol/L Anion Gap 7 mmol/L BUN 31 H (7-17) mg/dL Creatinine 1.74 H (0.52-1.04) mg/dL Est GFR (CKD-EPI)AfAm 36 (>60 ml/min/1.73 sqM) Est GFR (CKD-EPI)NonAf 31 (>60 ml/min/1.73 sqM) Glucose 97 (74-99) mg/dL Calcium 6.9 L (8.4-10.2) mg/dL Phosphorus 5.7 H (2.5-4.5) mg/dL Magnesium 1.4 L (1.6-2.3) mg/dL Total Bilirubin 0.9 (0.2-1.3) mg/dL AST 25 (14-36) U/L ALT 19 (4-34) U/L Alkaline Phosphatase 143 H (38-126) U/L Total Protein 7.2 (6.3-8.2) g/dL Albumin 4.3 (3.5-5.0) g/dL TSH 1.750 (0.465-4.680) mIU/L Disposition <Yady Mcnamara - Last Filed: 01/19/22 03:48> Is patient prescribed a controlled substance at d/c from ED?: No - Out of Hospital Transfer - Req. Specs Out of Hospital Transfer - Requested Specifics: Other Emergency Center ([facility]) <Kelsi Shaw - Last Filed: 01/19/22 05:32> Clinical Impression: Hypocalcemia, Hypomagnesemia, Hyperphosphatemia Disposition: OTHER INSTITUTION NOT DEFINED Condition: Stable Referrals: Sterling House MD [Primary Care Provider] - 1-2 days
[2022-01-19 02:35] LABS: ALT 19 U/L (4-34); AST 25 U/L (14-36); African American GFR (CKD) 36 (>60 ml/min/1.73 sqM); Albumin 4.3 g/dL (3.5-5.0); Alkaline Phosphatase 143 U/L (38-126); Anion Gap 7 mmol/L; Blood Urea Nitrogen 31 mg/dL (7-17); Calcium 6.9 mg/dL (8.4-10.2); Carbon Dioxide 30 mmol/L (22-30); Chloride 99 mmol/L (98-107); Glucose 97 mg/dL (74-99); Non-African American GFR(CKD) 31 (>60 ml/min/1.73 sqM); Potassium 4.4 mmol/L (3.5-5.1); Sodium 136 mmol/L (137-145); Total Bilirubin 0.9 mg/dL (0.2-1.3); Total Protein 7.2 g/dL (6.3-8.2)
[2022-01-19 03:07] LABS: Magnesium 1.4 mg/dL (1.6-2.3); Phosphorus 5.7 mg/dL (2.5-4.5)
[2022-01-19 03:35] VITALS: TEMP 97.8
[2022-01-19 04:09] VITALS: RESP 18
[2022-01-19] MEDS ORDERED: CALCIUM GLUCONATE IN NACL 2 GM in SALINE 1 100ML.BAG IVPB ONE (05:30)
[2022-01-19 05:51] VITALS: BP 113/73; PULSE 75
== END 2022-01-19 05:50 | disposition other institution (70) ==
LOC: EC 16:49
DX: J45.909 Unspecified asthma, uncomplicated (principal); E83.39 Other disorders of phosphorus metabolism; E83.51 Hypocalcemia; Z88.0 Allergy status to penicillin; Z88.1 Allergy status to other antibiotic agents; Z88.5 Allergy status to narcotic agent; Z91.040 Latex allergy status; Z91.048 Other nonmedicinal substance allergy status; Z88.2 Allergy status to sulfonamides; Z91.018 Allergy to other foods; Z88.6 Allergy status to analgesic agent
CPT/HCPCS: 36415; 80053; 84443; 83735; 84100; 85025; 83970; 99284; J0610

== ENCOUNTER → 2022-01-24 | Outpatient (CLI) | payer MEDICARE ==
[2022-01-24 16:23] LABS: ALT 28 U/L (8-44); AST 23 U/L (13-35); Albumin 4.5 g/dL (3.8-4.9); Albumin/Globulin Ratio 1.96 (1.60-3.17); Alkaline Phosphatase 163 U/L (41-126); BUN/Creat Ratio 19.11 Ratio (12.00-20.00); Blood Urea Nitrogen 36.3 mg/dL (9.0-27.0); Calcium 11.3 mg/dL (8.7-10.3); Chloride 100 mmol/L (96-109); Globulin 2.3 g/dL (1.6-3.3); Glucose 95 mg/dL (70-110); Non-African American GFR(CKD) 27.6 (60.0-200.0); Sodium 142 mmol/L (135-145); Total Bilirubin <0.15 mg/dL (0.30-1.20); Total Protein 6.8 g/dL (6.2-8.2)
== END | disposition home or self-care (01) ==
LOC: LABWHC1 08:13
PROVIDERS: ATTEND Internal Medicine Endocrinology, Diabetes & Metabolism
DX: E89.2 Postprocedural hypoparathyroidism (principal); E83.51 Hypocalcemia
CPT/HCPCS: 36415; 80053; 82306; 83970

== ENCOUNTER → 2022-01-31 | Outpatient (CLI) | payer MEDICARE ==
[2022-01-31 14:43] LABS: Basophils # (A) 0.03 X 10*3/uL (0.00-0.10); Basophils % (A) 0.6 %; Eosinophils # (A) 0 X 10*3/uL (0.04-0.35); Eosinophils % (A) 0 %; HCT 36.2 % (37.2-46.3); HGB 10.9 g/dL (12.0-15.0); Immature Grans, Automated 0.2 %; Lymphocytes # (A) 1.23 X 10*3/uL (0.90-5.00); Lymphocytes % (A) 23.5 %; MCH 28.7 pg (27.0-32.0); MCHC 30.1 g/dL (32.0-37.0); MCV 95.3 fL (80.0-97.0); Mean Platelet Volume 10.6 fL (9.5-12.2); Monocytes # (A) 0.46 X 10*3/uL (0.20-1.00); Monocytes % (A) 8.8 %; NRBC Per 100 WBC 0 /100 WBCS (0.0-0.0); Neutrophils % (A) 66.9 %; Platelet Count 249 X 10*3/uL (140-440); RDW 13.1 % (11.5-14.5); WBC 5.23 X 10*3/uL (4.50-10.00)
[2022-01-31 15:06] LABS: % Iron Saturation 25.58 (12.00-45.00); African American GFR (CKD) 28.3 (60.0-200.0); Anion Gap 12.1 mmol/L (10.00-18.00); BUN/Creat Ratio 19.33 Ratio (12.00-20.00); Blood Urea Nitrogen 40.6 mg/dL (9.0-27.0); Calcium 7.9 mg/dL (8.7-10.3); Carbon Dioxide 26.9 mmol/L (20.0-27.5); Magnesium 1.9 mg/dL (1.5-2.4); Non-African American GFR(CKD) 24.4 (60.0-200.0); Phosphorus 3.7 mg/dL (2.4-5.1); Potassium 4.8 mmol/L (3.5-5.5); Uric Acid 9.7 mg/dL (2.9-7.7)
[2022-01-31 15:09] LABS: Creatinine,Urine Random 66.1 mg/dL; Protein/Creatinine Ratio,Urine 0.166
[2022-01-31 15:24] LABS: Albumin 4.2 g/dL (3.8-4.9)
[2022-01-31 16:39] LABS: Appearance,Urine Clear (Clear); Bilirubin,Urine Negative (Negative); Blood,Urine Negative (Negative); Color,Urine Yellow (Yellow); Ketones,Urine Negative (Negative); Nitrite,Urine Negative (Negative); PH, Urine 7.5 (5.0-8.0); Urobilinogen,Urine 0.2 (0.2,1.0)
[2022-01-31 16:52] LABS: Bacteria,Urine None Seen /HPF (None Seen)
== END | disposition home or self-care (01) ==
LOC: LABWHC1 09:17
PROVIDERS: ATTEND Internal Medicine Nephrology
DX: N25.81 Secondary hyperparathyroidism of renal origin (principal); N18.32 Chronic kidney disease, stage 3b; E55.9 Vitamin D deficiency, unspecified; N39.0 Urinary tract infection, site not specified; D64.9 Anemia, unspecified; R80.9 Proteinuria, unspecified; M10.9 Gout, unspecified
CPT/HCPCS: 36415; 80048; 81001; 82040; 82306; 82570; 82728; 83540; 83550; 83735; 83970; 84100; 84156; 84550; 85025

== ENCOUNTER → 2022-02-03 | Outpatient (CLI) | payer MEDICARE ==
[2022-02-03 18:14] LABS: African American GFR (CKD) 26.6 (60.0-200.0); Albumin 4.3 g/dL (3.8-4.9); Albumin/Globulin Ratio 1.78 (1.60-3.17); Anion Gap 14.1 mmol/L (10.00-18.00); BUN/Creat Ratio 18.01 Ratio (12.00-20.00); Blood Urea Nitrogen 39.8 mg/dL (9.0-27.0); Calcium 8.6 mg/dL (8.7-10.3); Carbon Dioxide 24.2 mmol/L (20.0-27.5); Globulin 2.4 g/dL (1.6-3.3); Potassium 4.3 mmol/L (3.5-5.5); T4, Free (Free Thyroxine) 0.98 ng/dL (0.800-1.800); Total Bilirubin 0.2 mg/dL (0.30-1.20); Total Protein 6.7 g/dL (6.2-8.2)
== END | disposition home or self-care (01) ==
LOC: LABWHC1 13:35
PROVIDERS: ATTEND Internal Medicine Endocrinology, Diabetes & Metabolism
DX: E21.0 Primary hyperparathyroidism (principal)
CPT/HCPCS: 36415; 80053; 82306; 83970; 84439; 84443

== ENCOUNTER → 2022-06-16 | Outpatient (CLI) | payer MEDICARE ==
[2022-06-16 15:12] LABS: Creatinine,Urine Random 52.7 mg/dL; Protein/Creatinine Ratio,Urine 0.247
[2022-06-16 18:49] LABS: Basophils # (A) 0.03 X 10*3/uL (0.00-0.10); Basophils % (A) 0.7 %; Eosinophils # (A) 0 X 10*3/uL (0.04-0.35); Eosinophils % (A) 0 %; HCT 33.7 % (37.2-46.3); HGB 10.5 g/dL (12.0-15.0); Immature Grans, Automated 0.2 %; Lymphocytes # (A) 0.93 X 10*3/uL (0.90-5.00); Lymphocytes % (A) 20.7 %; MCH 29.1 pg (27.0-32.0); MCHC 31.2 g/dL (32.0-37.0); MCV 93.4 fL (80.0-97.0); Mean Platelet Volume 10.3 fL (9.5-12.2); Monocytes # (A) 0.39 X 10*3/uL (0.20-1.00); Monocytes % (A) 8.7 %; NRBC Per 100 WBC 0 /100 WBCS (0.0-0.0); Neutrophils # (A) 3.14 X 10*3/uL (1.80-7.70); Neutrophils % (A) 69.7 %; Platelet Count 218 X 10*3/uL (140-440); RBC 3.61 X 10*6/uL (4.10-5.20)
[2022-06-16 18:59] LABS: % Iron Saturation 18.19 (12.00-45.00); Anion Gap 13.9 mmol/L (10.00-18.00); BUN/Creat Ratio 15.78 Ratio (12.00-20.00); Blood Urea Nitrogen 29.2 mg/dL (9.0-27.0); Calcium 8.7 mg/dL (8.7-10.3); Carbon Dioxide 25.1 mmol/L (20.0-27.5); Magnesium 1.6 mg/dL (1.5-2.4); Non-African American GFR(CKD) 28.5 (60.0-200.0); Phosphorus 3.7 mg/dL (2.4-5.1); Potassium 4.5 mmol/L (3.5-5.5); Uric Acid 6.5 mg/dL (2.9-7.7)
[2022-06-16 19:26] LABS: Albumin 4.1 g/dL (3.8-4.9)
[2022-06-16 19:35] LABS: Appearance,Urine Clear (Clear); Bilirubin,Urine Negative (Negative); Blood,Urine Negative (Negative); Color,Urine Yellow (Yellow); Ketones,Urine Negative (Negative); Nitrite,Urine Negative (Negative); Specific Gravity,Urine 1.007 (1.001-1.030); Urobilinogen,Urine 0.2 (0.2,1.0)
== END | disposition home or self-care (01) ==
LOC: LABWHC1 12:47
PROVIDERS: ATTEND Nurse Practitioner Family
DX: N25.81 Secondary hyperparathyroidism of renal origin (principal); N18.32 Chronic kidney disease, stage 3b; D63.1 Anemia in chronic kidney disease; E55.9 Vitamin D deficiency, unspecified; M10.9 Gout, unspecified; N39.0 Urinary tract infection, site not specified; R80.9 Proteinuria, unspecified
CPT/HCPCS: 36415; 80048; 81003; 82040; 82306; 82570; 82728; 83540; 83550; 83735; 83970; 84100; 84156; 84550; 85025

== ENCOUNTER → 2022-09-21 | Outpatient (CLI) | payer MEDICARE ==
[2022-09-21 10:39] LABS: Appearance,Urine Clear (Clear); Bilirubin,Urine Negative (Negative); Blood,Urine Negative (Negative); Color,Urine Colorless; Glucose,Urine (UA) Negative (Negative); Ketones,Urine Negative (Negative); Leukocyte Esterase,Urine Trace (Negative); Nitrite,Urine Negative (Negative); PH, Urine 6.5 (5.0-8.0); Protein,Urine Negative (Negative); Specific Gravity,Urine 1.007 (1.001-1.035); Urobilinogen,Urine <2.0 mg/dL (<2.0); WBC,Urine 2 /hpf (0-5)
[2022-09-21 14:45] LABS: Basophils # (A) 0.02 X 10*3/uL (0.00-0.10); Basophils % (A) 0.5 %; Eosinophils # (A) 0 X 10*3/uL (0.04-0.35); Eosinophils % (A) 0 %; HCT 36.2 % (37.2-46.3); HGB 11.1 g/dL (12.0-15.0); Immature Grans, Automated 0 %; Lymphocytes # (A) 0.96 X 10*3/uL (0.90-5.00); Lymphocytes % (A) 26.2 %; MCH 28.8 pg (27.0-32.0); MCHC 30.7 g/dL (32.0-37.0); MCV 93.8 fL (80.0-97.0); Monocytes # (A) 0.37 X 10*3/uL (0.20-1.00); Monocytes % (A) 10.1 %; NRBC Per 100 WBC 0 /100 WBCS (0.0-0.0); Neutrophils # (A) 2.32 X 10*3/uL (1.80-7.70); Neutrophils % (A) 63.2 %; Platelet Count 202 X 10*3/uL (140-440); RBC 3.86 X 10*6/uL (4.10-5.20); RDW 13.5 % (11.5-14.5); WBC 3.67 X 10*3/uL (4.50-10.00)
[2022-09-21 18:20] LABS: % Iron Saturation 15.44 (12.00-45.00); Anion Gap 16.7 mmol/L (10.00-18.00); BUN/Creat Ratio 16.74 Ratio (12.00-20.00); Blood Urea Nitrogen 31.8 mg/dL (9.0-27.0); Calcium 8.9 mg/dL (8.7-10.3); Carbon Dioxide 24.3 mmol/L (20.0-27.5); Magnesium 1.6 mg/dL (1.5-2.4); Non-African American GFR(CKD) 27.6 (60.0-200.0); Phosphorus 4.3 mg/dL (2.4-5.1); Potassium 4.4 mmol/L (3.5-5.5); Uric Acid 6.9 mg/dL (2.9-7.7)
[2022-09-21 18:33] LABS: Albumin 4.4 g/dL (3.8-4.9)
[2022-09-21 19:50] LABS: Urine Creatinine 42.1 mg/dL (28.0-217.0)
== END | disposition home or self-care (01) ==
LOC: LABWHC1 08:12
PROVIDERS: ATTEND Internal Medicine Nephrology
DX: N18.32 Chronic kidney disease, stage 3b (principal); E55.9 Vitamin D deficiency, unspecified; N25.81 Secondary hyperparathyroidism of renal origin; M10.9 Gout, unspecified; N39.0 Urinary tract infection, site not specified; D63.1 Anemia in chronic kidney disease
CPT/HCPCS: 36415; 80048; 81001; 82040; 82043; 82306; 82570; 83540; 83550; 83735; 83970; 84100; 84550; 85025

== ENCOUNTER → 2022-12-30 | Outpatient (CLI) | payer MEDICARE ==
[2022-12-30 15:21] LABS: Basophils # (A) 0.03 X 10*3/uL (0.00-0.10); Basophils % (A) 0.7 %; Eosinophils # (A) 0 X 10*3/uL (0.04-0.35); Eosinophils % (A) 0 %; HCT 38.3 % (37.2-46.3); HGB 11.7 g/dL (12.0-15.0); Immature Grans, Automated 0.2 %; Lymphocytes # (A) 0.92 X 10*3/uL (0.90-5.00); Lymphocytes % (A) 21.2 %; MCH 28.8 pg (27.0-32.0); MCHC 30.5 g/dL (32.0-37.0); MCV 94.3 fL (80.0-97.0); Mean Platelet Volume 9.8 fL (9.5-12.2); Monocytes # (A) 0.45 X 10*3/uL (0.20-1.00); Monocytes % (A) 10.4 %; NRBC Per 100 WBC 0 /100 WBCS (0.0-0.0); Neutrophils # (A) 2.92 X 10*3/uL (1.80-7.70); Neutrophils % (A) 67.5 %; Platelet Count 257 X 10*3/uL (140-440); RBC 4.06 X 10*6/uL (4.10-5.20); RDW 13.4 % (11.5-14.5); WBC 4.33 X 10*3/uL (4.50-10.00)
[2022-12-30 16:20] LABS: % Iron Saturation 17.64 (12.00-45.00); African American GFR (CKD) 31.9 (60.0-200.0); Anion Gap 16.1 mmol/L (10.00-18.00); BUN/Creat Ratio 15.24 Ratio (12.00-20.00); Blood Urea Nitrogen 28.8 mg/dL (9.0-27.0); Calcium 9.9 mg/dL (8.7-10.3); Magnesium 1.9 mg/dL (1.5-2.4); Non-African American GFR(CKD) 27.6 (60.0-200.0); Phosphorus 4.3 mg/dL (2.4-5.1); Potassium 4.9 mmol/L (3.5-5.5); Uric Acid 6.8 mg/dL (2.9-7.7)
[2022-12-30 16:32] LABS: Albumin 4.6 g/dL (3.8-4.9)
[2022-12-30 17:44] LABS: Urine Creatinine 37.4 mg/dL (28.0-217.0)
== END | disposition home or self-care (01) ==
LOC: LABWHC1 08:48
PROVIDERS: ATTEND Internal Medicine Endocrinology, Diabetes & Metabolism
DX: E55.9 Vitamin D deficiency, unspecified (principal); E21.3 Hyperparathyroidism, unspecified; M10.9 Gout, unspecified; N39.0 Urinary tract infection, site not specified; D63.1 Anemia in chronic kidney disease; N18.32 Chronic kidney disease, stage 3b
CPT/HCPCS: 36415; 80048; 82040; 82043; 82306; 82570; 82728; 83540; 83550; 83735; 83970; 84100; 84550; 85025

== ENCOUNTER → 2023-03-31 | Outpatient (CLI) | payer MEDICARE ==
[2023-03-31 10:28] LABS: Appearance,Urine Clear (Clear); Bilirubin,Urine Negative (Negative); Blood,Urine Negative (Negative); Color,Urine Colorless; Glucose,Urine (UA) Negative (Negative); Ketones,Urine Negative (Negative); Leukocyte Esterase,Urine Moderate (Negative); Nitrite,Urine Negative (Negative); PH, Urine 5.5 (5.0-8.0); Protein,Urine Negative (Negative); Specific Gravity,Urine 1.007 (1.001-1.035); Urobilinogen,Urine <2.0 mg/dL (<2.0); WBC,Urine 9 /hpf (0-5)
[2023-03-31 16:29] LABS: Basophils # (A) 0.04 X 10*3/uL (0.00-0.10); Basophils % (A) 0.8 %; Eosinophils # (A) 0 X 10*3/uL (0.04-0.35); Eosinophils % (A) 0 %; HCT 33.6 % (37.2-46.3); HGB 10.7 d/dL (12.0-15.0); Lymphocytes # (A) 0.92 X 10*3/uL (0.90-5.00); Lymphocytes % (A) 18.7 %; MCHC 31.8 d/dL (32.0-37.0); MCV 94.1 FL (80.0-97.0); Mean Platelet Volume 10.5 FL (9.5-12.2); Monocytes # (A) 0.48 X 10*3/uL (0.20-1.00); Monocytes % (A) 9.8 %; NRBC Per 100 WBC 0 X 10*3/uL (0.00-0.01); Neutrophils # (A) 3.46 X 10*3/uL (1.80-7.70); Neutrophils % (A) 70.3 %; Platelet Count 196 X 10*3/uL (140-440); RBC 3.57 X 10*6/uL (4.10-5.20); RDW 13.7 % (11.5-14.5); WBC 4.92 X 10*3/uL (4.50-10.00)
[2023-03-31 16:49] LABS: % Iron Saturation 16.08 (12.00-45.00); Albumin 4.2 d/dL (3.8-4.9); BUN/Creat Ratio 16.44 Ratio (12.00-20.00); Blood Urea Nitrogen 41.1 mg/dL (9.0-27.0); Calcium 7.4 mg/dL (8.7-10.3); Carbon Dioxide 25.6 mmol/L (21.6-31.8); Chloride 102 mmol/L (96-109); Glucose 84 mg/dL (70-110); Iron 50 UG/DL (50-170); Potassium 4.9 mmol/L (3.5-5.5); Sodium 140 mmol/L (135-145); Total Iron Binding Capacity 311 UG/DL (228-460); Uric Acid 6.8 mg/dL (2.9-7.7)
[2023-03-31 18:55] LABS: Urine Creatinine 70.2 mg/dL (28.0-217.0)
== END | disposition home or self-care (01) ==
LOC: LABWHC1 08:48
PROVIDERS: ATTEND Nurse Practitioner Family
DX: N25.81 Secondary hyperparathyroidism of renal origin (principal); N18.32 Chronic kidney disease, stage 3b; D63.1 Anemia in chronic kidney disease; M10.9 Gout, unspecified; N39.0 Urinary tract infection, site not specified; R80.9 Proteinuria, unspecified
CPT/HCPCS: 36415; 80048; 81001; 82040; 82043; 82570; 82728; 83540; 83550; 83970; 84550; 85025

== ENCOUNTER → 2023-04-06 | Outpatient (CLI) | payer MEDICARE ==
[2023-04-06 16:18] LABS: ALT 19 U/L (8-44); AST 23 U/L (13-35); Albumin 4.3 d/dL (3.8-4.9); Albumin/Globulin Ratio 2.05 Ratio (1.60-3.17); Alkaline Phosphatase 104 U/L (41-126); BUN/Creat Ratio 18.33 Ratio (12.00-20.00); Calcium 8.6 mg/dL (8.7-10.3); Chloride 103 mmol/L (96-109); Globulin 2.1 d/dL (1.6-3.3); Glucose 85 mg/dL (70-110); Potassium 4.5 mmol/L (3.5-5.5); Sodium 141 mmol/L (135-145); T4, Free (Free Thyroxine) 1.05 ng/dL (0.80-1.80); Total Bilirubin 0.3 mg/dL (0.3-1.2); Total Protein 6.4 d/dL (6.2-8.2)
== END | disposition home or self-care (01) ==
LOC: LABWHC1 10:58
PROVIDERS: ATTEND Internal Medicine Endocrinology, Diabetes & Metabolism
DX: E89.2 Postprocedural hypoparathyroidism (principal)
CPT/HCPCS: 36415; 80053; 82306; 83970; 84439; 84443

== ENCOUNTER → 2023-05-11 | Outpatient (CLI) | payer MEDICARE | END | disposition home or self-care (01) | LOC: LABWHC1 07:49 | PROVIDERS: ATTEND Internal Medicine Endocrinology, Diabetes & Metabolism | DX: E89.2 Postprocedural hypoparathyroidism (principal); E03.8 Other specified hypothyroidism | CPT/HCPCS: 36415; 84439; 84443 ==

== ENCOUNTER → 2023-07-05 | Outpatient (CLI) | payer MEDICARE ==
[2023-07-05 15:34] LABS: Basophils # (A) 0.02 X 10*3/uL (0.00-0.10); Basophils % (A) 0.5 %; Eosinophils # (A) 0 X 10*3/uL (0.04-0.35); Eosinophils % (A) 0 %; HCT 35.8 % (37.2-46.3); HGB 11.2 d/dL (12.0-15.0); Immature Grans, Automated 0 %; Lymphocytes # (A) 0.83 X 10*3/uL (0.90-5.00); Lymphocytes % (A) 22.5 %; MCH 29.2 pg (27.0-32.0); MCHC 31.3 d/dL (32.0-37.0); MCV 93.5 FL (80.0-97.0); Mean Platelet Volume 9.9 FL (9.5-12.2); Monocytes # (A) 0.45 X 10*3/uL (0.20-1.00); Monocytes % (A) 12.2 %; NRBC Per 100 WBC 0 X 10*3/uL (0.00-0.01); Neutrophils # (A) 2.39 X 10*3/uL (1.80-7.70); Neutrophils % (A) 64.8 %; Platelet Count 209 X 10*3/uL (140-440); RBC 3.83 X 10*6/uL (4.10-5.20); RDW 13.4 % (11.5-14.5); WBC 3.69 X 10*3/uL (4.50-10.00)
[2023-07-05 16:29] LABS: % Iron Saturation 22.37 (12.00-45.00); Albumin 4.3 d/dL (3.8-4.9); BUN/Creat Ratio 21.21 Ratio (12.00-20.00); Blood Urea Nitrogen 40.3 mg/dL (9.0-27.0); Carbon Dioxide 28.4 mmol/L (21.6-31.8); Chloride 101 mmol/L (96-109); Glucose 83 mg/dL (70-110); Iron 68 UG/DL (50-170); Potassium 4.8 mmol/L (3.5-5.5); Sodium 142 mmol/L (135-145); Total Iron Binding Capacity 304 UG/DL (228-460)
[2023-07-05 17:02] LABS: Appearance,Urine Clear (Clear); Bilirubin,Urine Negative (Negative); Blood,Urine Negative (Negative); Color,Urine Yellow (Yellow); Ketones,Urine Negative (Negative); Nitrite,Urine Negative (Negative); PH, Urine 7.5; Specific Gravity,Urine 1.007 (1.001-1.030); Urobilinogen,Urine 0.2 E.U./DL
[2023-07-05 17:08] LABS: Bacteria,Urine None Seen (None Seen)
== END | disposition home or self-care (01) ==
LOC: LABWHC1 08:57
PROVIDERS: ATTEND Internal Medicine Nephrology
DX: N25.81 Secondary hyperparathyroidism of renal origin (principal); N18.32 Chronic kidney disease, stage 3b; D63.1 Anemia in chronic kidney disease; M10.9 Gout, unspecified; N39.0 Urinary tract infection, site not specified
CPT/HCPCS: 36415; 80048; 81001; 82040; 82043; 82570; 82728; 83540; 83550; 83970; 84550; 85025

== ENCOUNTER → 2023-11-20 | Outpatient (CLI) | payer MEDICARE ==
[2023-11-20 15:55] LABS: ALT 16 U/L (8-44); AST 21 U/L (13-35); Albumin 4.5 g/dL (3.8-4.9); Albumin/Globulin Ratio 1.96 Ratio (1.60-3.17); Alkaline Phosphatase 107 U/L (41-126); Blood Urea Nitrogen 30.6 mg/dL (9.0-27.0); Calcium 9.7 mg/dL (8.7-10.3); Carbon Dioxide 26.6 mmol/L (21.6-31.8); Chloride 102 mmol/L (96-109); Globulin 2.3 g/dL (1.6-3.3); Glucose 75 mg/dL (70-110); Potassium 4.3 mmol/L (3.5-5.5); Sodium 142 mmol/L (135-145); Total Bilirubin 0.3 mg/dL (0.3-1.2); Total Protein 6.8 g/dL (6.2-8.2)
== END | disposition home or self-care (01) ==
LOC: LABWHC1 11:20
PROVIDERS: ATTEND Internal Medicine Endocrinology, Diabetes & Metabolism
DX: E03.8 Other specified hypothyroidism (principal); E89.2 Postprocedural hypoparathyroidism; E83.51 Hypocalcemia
CPT/HCPCS: 36415; 80053; 82306; 83970; 84443

== ENCOUNTER → 2024-01-11 | Outpatient (CLI) | payer MEDICARE ==
[2024-01-11 16:01] LABS: Appearance,Urine Clear (Clear); Bilirubin,Urine Negative (Negative); Blood,Urine Negative (Negative); Color,Urine Yellow (Yellow); Ketones,Urine Negative (Negative); Nitrite,Urine Negative (Negative); Specific Gravity,Urine 1.012 (1.001-1.030); Urobilinogen,Urine 0.2 E.U./DL
[2024-01-11 16:10] LABS: HCT 34.6 % (37.2-46.3); HGB 10.9 g/dL (12.0-15.0); MCH 29.4 pg (27.0-32.0); MCHC 31.5 g/dL (32.0-37.0); MCV 93.3 FL (80.0-97.0); Mean Platelet Volume 9.9 FL (9.5-12.2); NRBC Per 100 WBC 0 X 10*3/uL (0.00-0.01); Platelet Count 207 X 10*3/uL (140-440); RBC 3.71 X 10*6/uL (4.10-5.20); WBC 3.92 X 10*3/uL (4.50-10.00)
[2024-01-11 16:11] LABS: Basophils # (A) 0.02 X 10*3/uL (0.00-0.10); Basophils % (A) 0.5 %; Eosinophils # (A) 0 X 10*3/uL (0.04-0.35); Eosinophils % (A) 0 %; Lymphocytes # (A) 1.04 X 10*3/uL (0.90-5.00); Lymphocytes % (A) 26.5 %; Monocytes # (A) 0.38 X 10*3/uL (0.20-1.00); Monocytes % (A) 9.7 %; Neutrophils # (A) 2.47 X 10*3/uL (1.80-7.70)
[2024-01-11 17:38] LABS: % Iron Saturation 20.78 (12.00-45.00); Ferritin 91.6 ng/mL (10.0-291.0); Iron 64 UG/DL (50-170); Magnesium 1.6 mg/dL (1.5-2.4); Phosphorus 3.6 mg/dL (2.4-5.1); Total Iron Binding Capacity 308 UG/DL (228-460); Uric Acid 5.5 mg/dL (2.9-7.7)
[2024-01-11 17:41] LABS: Albumin 4.2 g/dL (3.8-4.9); BUN/Creat Ratio 18.72 Ratio (12.00-20.00); Blood Urea Nitrogen 33.7 mg/dL (9.0-27.0); Calcium 8.7 mg/dL (8.7-10.3); Carbon Dioxide 24.9 mmol/L (21.6-31.8); Chloride 102 mmol/L (96-109); Glucose 86 mg/dL (70-110); Potassium 4.4 mmol/L (3.5-5.5); Sodium 139 mmol/L (135-145)
[2024-01-11 22:50] LABS: Urine Creatinine 78.2 mg/dL (28.0-217.0)
== END | disposition home or self-care (01) ==
LOC: LABWHC1 11:14
PROVIDERS: ATTEND Nurse Practitioner Family
DX: N18.32 Chronic kidney disease, stage 3b (principal)
CPT/HCPCS: 36415; 80048; 81003; 82040; 82043; 82306; 82570; 82728; 83540; 83550; 83735; 83970; 84100; 84550; 85025

== ENCOUNTER → 2024-02-12 | Outpatient (CLI) | payer MEDICARE | END | disposition home or self-care (01) | LOC: LABWHC1 11:13 | PROVIDERS: ATTEND Internal Medicine Endocrinology, Diabetes & Metabolism | DX: E03.8 Other specified hypothyroidism (principal) | CPT/HCPCS: 36415; 84443 ==

== ENCOUNTER → 2024-06-05 | Outpatient (CLI) | payer MEDICARE ==
[2024-06-05 15:08] LABS: Basophils # (A) 0.02 X 10*3/uL (0.00-0.10); Basophils % (A) 0.5 %; Eosinophils # (A) 0 X 10*3/uL (0.04-0.35); Eosinophils % (A) 0 %; HCT 35.6 % (37.2-46.3); HGB 11.1 g/dL (12.0-15.0); Immature Grans, Automated 0 %; Lymphocytes # (A) 1.04 X 10*3/uL (0.90-5.00); Lymphocytes % (A) 27.1 %; MCH 29.4 pg (27.0-32.0); MCHC 31.2 g/dL (32.0-37.0); MCV 94.4 FL (80.0-97.0); Mean Platelet Volume 10.1 FL (9.5-12.2); Monocytes # (A) 0.44 X 10*3/uL (0.20-1.00); Monocytes % (A) 11.5 %; NRBC Per 100 WBC 0 X 10*3/uL (0.00-0.01); Neutrophils # (A) 2.34 X 10*3/uL (1.80-7.70); Neutrophils % (A) 60.9 %; Platelet Count 200 X 10*3/uL (140-440); RBC 3.77 X 10*6/uL (4.10-5.20); RDW 14.2 % (11.5-14.5); WBC 3.84 X 10*3/uL (4.50-10.00)
[2024-06-05 15:23] LABS: Appearance,Urine Clear (Clear); Bilirubin,Urine Negative (Negative); Blood,Urine Negative (Negative); Color,Urine Yellow (Yellow); Ketones,Urine Negative (Negative); Nitrite,Urine Negative (Negative); Specific Gravity,Urine 1.011 (1.001-1.030); Urobilinogen,Urine 0.2 E.U./DL
[2024-06-05 15:56] LABS: Albumin 4.3 g/dL (3.8-4.9); BUN/Creat Ratio 17.39 Ratio (12.00-20.00); Blood Urea Nitrogen 31.3 mg/dL (9.0-27.0); Calcium 8.9 mg/dL (8.7-10.3); Chloride 102 mmol/L (96-109); Glucose 83 mg/dL (70-110); Iron 46 UG/DL (50-170); Magnesium 1.6 mg/dL (1.5-2.4); Potassium 4.9 mmol/L (3.5-5.5); Sodium 141 mmol/L (135-145); Total Iron Binding Capacity 293 UG/DL (228-460); Uric Acid 6.5 mg/dL (2.9-7.7)
[2024-06-05 18:14] LABS: Urine Creatinine 63.9 mg/dL (28.0-217.0)
== END | disposition home or self-care (01) ==
LOC: LABWHC1 10:13
PROVIDERS: ATTEND Internal Medicine Nephrology
DX: N18.32 Chronic kidney disease, stage 3b
CPT/HCPCS: 36415; 80048; 81003; 82040; 82043; 82306; 82570; 82728; 83540; 83550; 83735; 83970; 84100; 84550; 85025

== ENCOUNTER → 2024-11-27 | Outpatient (CLI) | payer MEDICARE ==
[2024-11-27 15:01] LABS: Appearance,Urine Clear (Clear); Bilirubin,Urine Negative (Negative); Blood,Urine Negative (Negative); Color,Urine Colorless; Glucose,Urine (UA) Negative (Negative); Ketones,Urine Negative (Negative); Leukocyte Esterase,Urine Negative (Negative); Nitrite,Urine Negative (Negative); Protein,Urine Negative (Negative); Specific Gravity,Urine 1.007 (1.001-1.035); Urobilinogen,Urine <2.0 mg/dL (<2.0)
[2024-11-27 15:52] LABS: Basophils # (A) 0.02 X 10*3/uL (0.00-0.10); Basophils % (A) 0.5 %; Eosinophils # (A) 0 X 10*3/uL (0.04-0.35); Eosinophils % (A) 0 %; HGB 10.8 g/dL (12.0-15.0); Lymphocytes # (A) 1.22 X 10*3/uL (0.90-5.00); Lymphocytes % (A) 28.7 %; MCH 29.3 pg (27.0-32.0); MCHC 31.8 g/dL (32.0-37.0); MCV 92.4 FL (80.0-97.0); Mean Platelet Volume 10.3 FL (9.5-12.2); Monocytes # (A) 0.39 X 10*3/uL (0.20-1.00); Monocytes % (A) 9.2 %; NRBC Per 100 WBC 0 X 10*3/uL (0.00-0.01); Neutrophils # (A) 2.61 X 10*3/uL (1.80-7.70); Neutrophils % (A) 61.4 %; Platelet Count 205 X 10*3/uL (140-440); RBC 3.68 X 10*6/uL (4.10-5.20); RDW 13.1 % (11.5-14.5); WBC 4.25 X 10*3/uL (4.50-10.00)
[2024-11-27 16:27] LABS: % Iron Saturation 16.83 (12.00-45.00); Albumin 4.2 g/dL (3.8-4.9); BUN/Creat Ratio 19.78 Ratio (12.00-20.00); Blood Urea Nitrogen 35.6 mg/dL (9.0-27.0); Carbon Dioxide 27.6 mmol/L (21.6-31.8); Chloride 100 mmol/L (96-109); Glucose 88 mg/dL (70-110); Iron 52 UG/DL (50-170); Magnesium 1.5 mg/dL (1.5-2.4); Phosphorus 3.7 mg/dL (2.4-5.1); Potassium 4.3 mmol/L (3.5-5.5); Sodium 139 mmol/L (135-145); Total Iron Binding Capacity 309 UG/DL (228-460); Uric Acid 6.8 mg/dL (2.9-7.7)
[2024-11-27 19:32] LABS: Urine Creatinine 39.5 mg/dL (28.0-217.0)
== END | disposition home or self-care (01) ==
LOC: LABWHC1 11:44
PROVIDERS: ATTEND Nurse Practitioner Family
DX: E55.9 Vitamin D deficiency, unspecified (principal); N25.81 Secondary hyperparathyroidism of renal origin; N18.32 Chronic kidney disease, stage 3b; D63.1 Anemia in chronic kidney disease; M10.9 Gout, unspecified; N39.0 Urinary tract infection, site not specified; R80.9 Proteinuria, unspecified
CPT/HCPCS: 36415; 80048; 81003; 82040; 82043; 82306; 82570; 82728; 83540; 83550; 83735; 83970; 84100; 84550; 85025

== ENCOUNTER → 2025-03-31 | Outpatient (CLI) | payer MEDICARE ==
[2025-03-31 20:52] LABS: Bilirubin,Urine Negative (Negative); Blood,Urine Negative (Negative); Color,Urine Yellow (Yellow); Ketones,Urine Negative (Negative); Nitrite,Urine Negative (Negative); PH, Urine 7.5; Specific Gravity,Urine 1.006 (1.001-1.030); Urobilinogen,Urine 0.2 E.U./DL
[2025-03-31 21:16] LABS: Basophils # (A) 0.02 X 10*3/uL (0.00-0.10); Basophils % (A) 0.4 %; Eosinophils # (A) 0 X 10*3/uL (0.04-0.35); Eosinophils % (A) 0 %; HCT 35.7 % (37.2-46.3); HGB 11.0 g/dL (12.0-15.0); Immature Grans, Automated 0.20 %; Lymphocytes # (A) 1.30 X 10*3/uL (0.90-5.00); Lymphocytes % (A) 26.4 %; MCH 29.3 pg (27.0-32.0); MCHC 30.8 g/dL (32.0-37.0); MCV 95.2 FL (80.0-97.0); Monocytes # (A) 0.39 X 10*3/uL (0.20-1.00); Monocytes % (A) 7.9 %; NRBC Per 100 WBC 0 X 10*3/uL (0.00-0.01); Neutrophils # (A) 3.20 X 10*3/uL (1.80-7.70); Neutrophils % (A) 65.1 %; Platelet Count 209 X 10*3/uL (140-440); RBC 3.75 X 10*6/uL (4.10-5.20); RDW 13.9 % (11.5-14.5); WBC 4.92 X 10*3/uL (4.50-10.00)
[2025-04-01 00:07] LABS: Albumin 4.3 g/dL (3.8-4.9); Anion Gap 13.10 mmol/L (4.00-12.00); BUN/Creat Ratio 17.89 Ratio (12.00-20.00); Blood Urea Nitrogen 34.0 mg/dL (9.0-27.0); Calcium 9.5 mg/dL (8.7-10.3); Carbon Dioxide 27.9 mmol/L (21.6-31.8); Chloride 100 mmol/L (96-109); Ferritin 104.0 ng/mL (10.0-291.0); Glucose 131 mg/dL (70-110); Iron 49 UG/DL (50-170); Magnesium 1.6 mg/dL (1.5-2.4); Potassium 4.3 mmol/L (3.5-5.5); Sodium 141 mmol/L (135-145); Total Iron Binding Capacity 294 UG/DL (228-460); Uric Acid 6.1 mg/dL (2.9-7.7)
== END | disposition home or self-care (01) ==
LOC: LABWHC1 12:58
PROVIDERS: ATTEND Internal Medicine Nephrology
DX: E55.9 Vitamin D deficiency, unspecified (principal); N25.81 Secondary hyperparathyroidism of renal origin; M10.9 Gout, unspecified; N39.0 Urinary tract infection, site not specified; N18.32 Chronic kidney disease, stage 3b; D63.1 Anemia in chronic kidney disease
CPT/HCPCS: 36415; 80048; 81003; 82040; 82043; 82306; 82570; 82728; 83540; 83550; 83735; 83970; 84100; 84550; 85025

== ENCOUNTER → 2025-04-07 | Outpatient (CLI) | payer MEDICARE ==
--- NOTE | 2025-04-07 12:36 | MM ---
Reason for Exam: Follow-up at short interval from prior study. Last screening mammogram was performed 8 month(s) ago. Patient History: Menarche at age 10. First Full-Term at age 19. Left ovary removed at age 24. Right ovary removed at age 24. Hysterectomy at age 24. Postmenopausal. Estrogen for 20 years from age 24 until age 44. Hormonal Contraceptives for 3 years from age 15 until age 18. 09/04/2024, Ultrasound-Guided Core Biopsy on the Left side. Maternal aunt had breast cancer. Risk Values: Kate 5 year model risk: 1.8%. NCI Lifetime model risk: 6.4%. Prior Study Comparison: 04/28/2005 Bilateral Diagnostic Mammogram, [facility]. 05/01/2006 Bilateral Screening Mammogram, [facility]. 05/04/2006 Right Diagnostic Mammogram, [facility]. Tissue Density: Left: There are scattered areas of fibroglandular density. Findings: Analyzed By CAD. Postbiopsy changes left breast. No evidence for new mass or suspicious calcifications. Overall Assessment: Benign, BI-RAD 2 Management: Screening Mammogram of both breasts in 6 months. . Results were given to the patient verbally at the time of exam. Patient should continue monthly self-breast exams. A clinical breast exam by your physician is recommended on an annual basis. This exam should not preclude additional follow-up of suspicious palpable abnormalities. Note on Kate scores and lifetime risk: 1. A Kate score greater than 3% is considered moderate risk. If this is the case, consider specialist referral to assess eligibility for a risk reducing agent. 2. If overall lifetime risk for the development of breast cancer is 20% or higher, the patient may qualify for future screening with alternating mammogram and breast MRI. [facility], , 04/07/2025 11:54 AM. Electronically signed and approved by: Artem Medrano M.D. Radiologis
== END | disposition home or self-care (01) ==
LOC: RADMAMWWP 10:55
PROVIDERS: ATTEND Surgery
DX: R92.8 Other abnormal and inconclusive findings on diagnostic imaging of breast (principal); R92.323 Mammographic fibroglandular density, bilateral breasts; Z78.0 Asymptomatic menopausal state; Z80.3 Family history of malignant neoplasm of breast
CPT/HCPCS: 77061; 77065